=== PATIENT | female | born 1990 | race African-American/Black ===

== ENCOUNTER 2020-09-14 06:15 | Inpatient (IN) | payer OTHER ==
[2020-09-14] MEDS ORDERED: ELECTROLYTE-148 SOLN 1,000 ML IV ONE (06:40)
[2020-09-14] MEDS ORDERED: CITRIC ACID/SODIUM CITRATE 30 ML UNIT-DOSE CUP PO ONE ×2 (06:45→07:57)
[2020-09-14] MEDS ORDERED: ELECTROLYTE-148 SOLN 1,000 ML IV SCH ×2 (07:10→08:00)
[2020-09-14 07:39] VITALS: BMI 36.8
[2020-09-14] MEDS ORDERED: ELECTROLYTE-148 SOLN 500 ML IV ONE (07:55)
[2020-09-14] MEDS ORDERED: morphine SULFATE/PF 0.5 MG/ML (2cc Syringe - QUVA) EP ONE (07:55)
[2020-09-14] MEDS ORDERED: ONDANSETRON 4 MG/2 ML VIAL IVPUSH PRN (07:55)
[2020-09-14] MEDS ORDERED: OXYTOCIN 20 UNITS in 0.9% NS 20 UNIT/1,000 ML INFUS.BAG IV ONE ×2 (07:58→14:11)
[2020-09-14] MEDS ORDERED: SUCCINYLCHOLINE CHLORIDE 200 MG/10 ML SYRINGE ONE (08:07)
[2020-09-14] MEDS ORDERED: morphine SULFATE/PF 0.5 MG/ML (2cc Syringe - QUVA) ONE (08:07)
[2020-09-14] MEDS ORDERED: PROPOFOL 20 ML ONE (08:08)
[2020-09-14] MEDS ORDERED: PHENYLEPHRINE HCL 10 MG/1 ML SINGLE DOSE VIAL ONE (08:08)
[2020-09-14] MEDS ORDERED: SODIUM CHLORIDE 0.9% P/F 10 ML VIAL IJ ONE (08:11)
[2020-09-14] MEDS ORDERED: ceFAZolin SODIUM 1 GM VIAL ONE (08:11)
[2020-09-14] MEDS ORDERED: OXYTOCIN 10 UNITS/ML VIAL ONE (08:11)
[2020-09-14] MEDS ORDERED: KETOROLAC TROMETHAMINE 30 MG/1 ML VIAL ONE (09:01)
[2020-09-14] MEDS ORDERED: ONDANSETRON 4 MG/2 ML VIAL ONE (09:01)
[2020-09-14] MEDS ORDERED: DEXAMETHASONE SOD PHOSPHATE 4 MG/1 ML VIAL ONE (09:01)
[2020-09-14] MEDS ORDERED: IBUPROFEN 600 MG TABLET (FP) PO PRN (10:03)
[2020-09-14] MEDS ORDERED: ACETAMINOPHEN 325 MG TABLET (FP) PO PRN (10:03)
[2020-09-14] MEDS ORDERED: oxyCODONE HCL 5 MG TABLET PO PRN (10:03)
[2020-09-14] MEDS ORDERED: IBUPROFEN 800 MG/8 ML IJ IVPB PRN (10:03)
[2020-09-14] MEDS ORDERED: METHYLERGONOVINE MALEATE 0.2 MG/1 ML AMP IM PRN (10:03)
[2020-09-14] MEDS ORDERED: OXYTOCIN 20 UNITS in 0.9% NS 20 UNIT/1,000 ML INFUS.BAG IV SCH (10:15)
[2020-09-14] MEDS: ACETAMINOPHEN 325 MG TABLET (FP) PO PRN (23:32)
[2020-09-14] MEDS: IBUPROFEN 600 MG TABLET (FP) PO PRN (23:33)
[2020-09-15] MEDS: IBUPROFEN 600 MG TABLET (FP) PO PRN ×3 (06:48→22:24)
[2020-09-15] MEDS: ACETAMINOPHEN 325 MG TABLET (FP) PO PRN ×3 (06:49→22:24)
[2020-09-15 08:36] LABS: BASO % 0.2 % (0-2.0); EOS % 0.3 % (0-4.5); MCH 26.5 pg (25.7-33.7); MCHC 32.3 g/dl (32.0-36.0); MEAN PLT VOLUME 8.4 fl (7.5-11.1); MONO % 8.5 % (3.8-10.2); PLATELET COUNT 165 10^3/uL (134-434); RBC 3.41 M/mm3 (3.60-5.2); RDW 17.9 % (11.6-15.6); WHITE BLOOD COUNT 9.8 K/mm3 (4.0-10.0)
[2020-09-15] MEDS: PRENATAL VITAMINS W/ FOLIC ACID TABLET (FP) PO SCH (09:27)
[2020-09-15] MEDS ORDERED: BISACODYL 10 MG SUPP.RECT RC PRN (10:03)
[2020-09-15] MEDS: SIMETHICONE 80 MG TAB.CHEW (FP) PO PRN (22:25)
[2020-09-16] MEDS: PRENATAL VITAMINS W/ FOLIC ACID TABLET (FP) PO SCH (10:12)
[2020-09-16] MEDS: IBUPROFEN 600 MG TABLET (FP) PO PRN ×2 (12:11→19:30)
[2020-09-16] MEDS: oxyCODONE HCL 5 MG TABLET PO PRN ×2 (12:12→19:30)
[2020-09-16] MEDS: SIMETHICONE 80 MG TAB.CHEW (FP) PO PRN ×2 (12:12→19:29)
[2020-09-16] MEDS: SENNOSIDES/DOCUSATE COMBO (SENNA PLUS) TABLET (UD) PO PRN (19:29)
[2020-09-17 07:39] LABS: BASO % 0.2 % (0-2.0); EOS % 1.2 % (0-4.5); HEMATOCRIT 29.5 % (32.4-45.2); HEMOGLOBIN 9.4 GM/dL (10.7-15.3); LYMPH % 12.1 % (8-40); MCH 26.5 pg (25.7-33.7); MEAN CELL VOLUME 82.8 fl (80-96); MEAN PLT VOLUME 8.7 fl (7.5-11.1); MONO % 6.1 % (3.8-10.2); NEUT % 80.4 % (42.8-82.8); PLATELET COUNT 177 10^3/uL (134-434); RBC 3.56 M/mm3 (3.60-5.2); RDW 18.4 % (11.6-15.6)
[2020-09-17] MEDS: ACETAMINOPHEN 325 MG TABLET (FP) PO PRN ×2 (08:41→17:46)
[2020-09-17] MEDS: IBUPROFEN 600 MG TABLET (FP) PO PRN ×2 (08:42→17:45)
[2020-09-17] MEDS: PRENATAL VITAMINS W/ FOLIC ACID TABLET (FP) PO SCH (12:14)
[2020-09-17] MEDS: SIMETHICONE 80 MG TAB.CHEW (FP) PO PRN ×2 (17:46→22:00)
[2020-09-17] MEDS: SENNOSIDES/DOCUSATE COMBO (SENNA PLUS) TABLET (UD) PO PRN (22:00)
[2020-09-18] MEDS: ACETAMINOPHEN 325 MG TABLET (FP) PO PRN ×2 (03:29→16:04)
[2020-09-18] MEDS: SIMETHICONE 80 MG TAB.CHEW (FP) PO PRN ×2 (03:29→16:05)
[2020-09-18] MEDS: IBUPROFEN 600 MG TABLET (FP) PO PRN ×2 (03:30→16:04)
[2020-09-18 07:21] LABS: BASO % 0.3 % (0-2.0); EOS % 1.1 % (0-4.5); HEMATOCRIT 27.4 % (32.4-45.2); LYMPH % 11.2 % (8-40); MCH 26.9 pg (25.7-33.7); MCHC 32.8 g/dl (32.0-36.0); MEAN CELL VOLUME 82.1 fl (80-96); MEAN PLT VOLUME 8.3 fl (7.5-11.1); MONO % 5.9 % (3.8-10.2); NEUT % 81.5 % (42.8-82.8); PLATELET COUNT 187 10^3/uL (134-434); RBC 3.33 M/mm3 (3.60-5.2); RDW 18.6 % (11.6-15.6); WHITE BLOOD COUNT 6.9 K/mm3 (4.0-10.0)
[2020-09-18] MEDS: PRENATAL VITAMINS W/ FOLIC ACID TABLET (FP) PO SCH (09:57)
[2020-09-18 12:11] VITALS: BP 124/72; PULSE 90; TEMP 97.8
== END 2020-09-18 17:00 | disposition home or self-care (01) | DRG 540 ==
LOC: JLDR 06:15 → J3W 11:18
PROVIDERS: ADMIT Obstetrics & Gynecology; ATTEND Obstetrics & Gynecology
PROC: 10D00Z1 Extraction of Products of Conception, Low, Open Approach (ICD-10-PCS; principal; 2020-09-14)
DX: O34.219 Maternal care for unspecified type scar from previous cesarean delivery (principal); Z3A.39 39 weeks gestation of pregnancy; Z37.0 Single live birth
CPT/HCPCS: 36415; 85025; 88307-TC; C9803; U0003; U0005